=== PATIENT | male | born 1950 | race Caucasian/White ===

== ENCOUNTER 2020-06-08 18:13 | Inpatient (IN) | payer OTHER ==
[2020-06-08] MEDS ORDERED: ALBUTEROL SO4 HFA INHALER IH ONE ×2 (18:26→19:05)
[2020-06-08] MEDS ORDERED: DEXAMETHASONE SOD PHOSPHATE 10 MG/1 ML VIAL ONE (18:26)
[2020-06-08] MEDS ORDERED: ACETAMINOPHEN INJECTION 100 ML IVPB ONE (18:31)
[2020-06-08] MEDS ORDERED: SODIUM CHLORIDE 0.9% 500 ML INFUS.BAG IV ONE ×2 (18:38→19:05)
[2020-06-08] MEDS ORDERED: DEXAMETHASONE SOD PHOSPHATE 10 MG/1 ML VIAL IVPUSH ONE (19:05)
[2020-06-08] MEDS ORDERED: ACETAMINOPHEN 1000 MG/100 ML VIAL (NON FORMULARY) IVPB ONE (19:05)
[2020-06-08] MEDS ORDERED: CEFTRIAXONE 1,000 MG in DEXTROSE 5%-WATER - 50 ML IVPB ONE (19:07)
[2020-06-08] MEDS ORDERED: AZITHROMYCIN IVPB 500 MG in DEXTROSE 5%-WATER - 250 ML IVPB ONE (19:07)
[2020-06-08 19:19] LABS: VENOUS BASE EXCESS -0.4 mmol/L (-2-2); VENOUS O2 SATURATION 84.6 % (70-80); VENOUS PCO2 41.5 mmHg (38-52); VENOUS PH 7.391 (7.310-7.410)
[2020-06-08 19:23] LABS: BASO % 0.4 % (0-2.0); HEMATOCRIT 43.9 % (35.4-49); HEMOGLOBIN 14.6 GM/dL (11.7-16.9); LYMPH % 12.3 % (8-40); MCH 32.3 pg (25.7-33.7); MCHC 33.2 g/dl (32.0-35.9); MEAN CELL VOLUME 97.2 fl (80-96); MEAN PLT VOLUME 8.9 fl (7.5-11.1); NEUT % 79.3 % (42.8-82.8); PLATELET COUNT 108 K/MM3 (134-434); RBC 4.52 M/mm3 (4.00-5.60); RDW 14.1 % (11.9-15.9); WHITE BLOOD COUNT 3.5 K/mm3 (4.0-10.0)
[2020-06-08 19:32] LABS: INR 1.08 (0.83-1.09)
[2020-06-08 19:35] LABS: ACTIVATED PTT 29.6 SECONDS (25.2-36.5)
[2020-06-08 19:46] LABS: CHLORIDE 105 mmol/L (98-107); POTASSIUM 4.1 mmol/L (3.5-5.1); SODIUM 137 mmol/L (136-145)
[2020-06-08 19:48] LABS: CALCIUM 8.4 mg/dL (8.5-10.1)
[2020-06-08 19:49] LABS: ALBUMIN 3.4 g/dl (3.4-5.0); ANION GAP 6 MMOL/L (8-16); BLOOD UREA NITROGEN 29.4 mg/dL (7-18); CO2 26 mmol/L (21-32); GLUCOSE,RANDOM 140 mg/dL (74-106)
[2020-06-08 19:51] LABS: BILIRUBIN,DIRECT 0.2 mg/dL (0.0-0.2)
[2020-06-08 19:52] LABS: SGOT/AST 92 U/L (15-37); SGPT/ALT 70 U/L (13-61)
[2020-06-08 19:53] LABS: BILIRUBIN,TOTAL 0.4 mg/dL (0.2-1); TOT PROT 6.2 g/dl (6.4-8.2)
[2020-06-08 19:55] LABS: ALK PHOS 66 U/L (45-117)
[2020-06-08 19:57] LABS: N-TERMINAL BNP 163.2 pg/ml (5-125)
[2020-06-08] MEDS ORDERED: CEFTRIAXONE 1 GM/50 ML BAG ONE (19:58)
[2020-06-08 19:59] LABS: LDH 412 U/L (87-246)
[2020-06-08] MEDS ORDERED: AZITHROMYCIN IVPB 500 MG/250 ML BAG IVPB ONE (19:59)
[2020-06-08] MEDS ORDERED: ALBUTEROL SO4 HFA INHALER IH PRN (23:18)
[2020-06-09] MEDS ORDERED: oxyCODONE HCL 5 MG TABLET PO PRN (00:13)
[2020-06-09] MEDS ORDERED: ACETAMINOPHEN 325 MG TABLET (FP) PO PRN (00:15)
[2020-06-09] MEDS: INSULIN SLIDING SCALE (NOVOLOG) 1 VIAL SQ SCH ×3 (07:04→17:24)
[2020-06-09 07:18] LABS: BASO % 0.1 % (0-2.0); HEMATOCRIT 42.5 % (35.4-49); HEMOGLOBIN 14.5 GM/dL (11.7-16.9); MCHC 34.2 g/dl (32.0-35.9); MEAN CELL VOLUME 96.6 fl (80-96); MEAN PLT VOLUME 8.7 fl (7.5-11.1); MONO % 6.4 % (3.8-10.2); NEUT % 83.5 % (42.8-82.8); PLATELET COUNT 114 K/MM3 (134-434); RDW 14.1 % (11.9-15.9); WHITE BLOOD COUNT 4.2 K/mm3 (4.0-10.0)
[2020-06-09 07:32] LABS: POTASSIUM 4.2 mmol/L (3.5-5.1)
[2020-06-09 07:40] LABS: ALBUMIN 3.3 g/dl (3.4-5.0); BLOOD UREA NITROGEN 37.1 mg/dL (7-18); CALCIUM 8.7 mg/dL (8.5-10.1); MAGNESIUM 2.1 mg/dL (1.8-2.4)
[2020-06-09 07:43] LABS: CREATININE 1.8 mg/dL (0.55-1.3)
[2020-06-09 07:44] LABS: BILIRUBIN,TOTAL 0.4 mg/dL (0.2-1)
[2020-06-09] MEDS ORDERED: PATIENT'S OWN MEDICATION (NON-FORMULARY) (Simvastatin [Zocor] 20 MG Tablet) PO SCH (10:00)
[2020-06-09] MEDS: DEXAMETHASONE 4 MG TABLET (FP) PO SCH (10:43)
[2020-06-09] MEDS: ASPIRIN 81 MG CHEWABLE TABLETS PO SCH (10:43)
[2020-06-09] MEDS: ENOXAPARIN NA (PORCINE) 40 MG/0.4 ML DISP.SYRIN SQ SCH (10:44)
[2020-06-09] MEDS: ALLOPURINOL 300 MG TABLET (FP) PO SCH (10:46)
[2020-06-09 11:24] VITALS: BMI 29.1
[2020-06-09] MEDS ORDERED: REMDESIVIR 200 MG in SODIUM CHLORIDE 210 ML IVPB ONE (12:00)
[2020-06-09] MEDS ORDERED: INSULIN (NOVOLOG) ASPART 100 UNITS/ML 10ML VIAL ONE (12:14)
[2020-06-09] MEDS ORDERED: PT OWN MED DRAWER 7, Y5N ONE (17:23)
[2020-06-09] MEDS: glipiZIDE 5 MG TABLET (FP) PO SCH (17:24)
[2020-06-09] MEDS: ATORVASTATIN CA 10 MG TABLET (FP) PO SCH (21:57)
[2020-06-10] MEDS ORDERED: PT OWN MED DRAWER 7, Y5N ONE ×2 (05:30→17:05)
[2020-06-10] MEDS: glipiZIDE 5 MG TABLET (FP) PO SCH ×2 (06:46→17:17)
[2020-06-10] MEDS: INSULIN SLIDING SCALE (NOVOLOG) 1 VIAL SQ SCH ×4 (06:55→21:50)
[2020-06-10] MEDS: ENOXAPARIN NA (PORCINE) 40 MG/0.4 ML DISP.SYRIN SQ SCH (10:32)
[2020-06-10] MEDS: ASPIRIN 81 MG CHEWABLE TABLETS PO SCH (10:33)
[2020-06-10] MEDS: DEXAMETHASONE 4 MG TABLET (FP) PO SCH (10:33)
[2020-06-10] MEDS: ALLOPURINOL 300 MG TABLET (FP) PO SCH (10:35)
[2020-06-10] MEDS ORDERED: cefTRIAXone SODIUM 1 GM VIAL ONE (11:46)
[2020-06-10] MEDS ORDERED: DEXTROSE 5%-WATER - 50 ML IVPB ONE (11:46)
[2020-06-10] MEDS: CEFTRIAXONE 1 GM in DEXTROSE 5%-WATER - 50 ML IVPB SCH (11:47)
[2020-06-10] MEDS: REMDESIVIR 100 MG in SODIUM CHLORIDE 230 ML IVPB SCH (14:20)
[2020-06-10] MEDS: INSULIN (LEVEMIR) 100 UNITS/ML UNITS SQ SCH (21:49)
[2020-06-10] MEDS: ATORVASTATIN CA 10 MG TABLET (FP) PO SCH (21:51)
[2020-06-11] MEDS ORDERED: PT OWN MED DRAWER 7, Y5N ONE ×2 (06:25→16:52)
[2020-06-11] MEDS: INSULIN SLIDING SCALE (NOVOLOG) 1 VIAL SQ SCH ×4 (06:35→21:14)
[2020-06-11] MEDS: glipiZIDE 5 MG TABLET (FP) PO SCH ×2 (06:36→17:02)
[2020-06-11] MEDS ORDERED: cefTRIAXone SODIUM 1 GM VIAL ONE (10:08)
[2020-06-11] MEDS ORDERED: DEXTROSE 5%-WATER - 50 ML IVPB ONE (10:08)
[2020-06-11] MEDS: CEFTRIAXONE 1 GM in DEXTROSE 5%-WATER - 50 ML IVPB SCH (10:13)
[2020-06-11] MEDS: ALLOPURINOL 300 MG TABLET (FP) PO SCH (10:14)
[2020-06-11] MEDS: ASPIRIN 81 MG CHEWABLE TABLETS PO SCH (10:14)
[2020-06-11] MEDS: DEXAMETHASONE 4 MG TABLET (FP) PO SCH (10:14)
[2020-06-11] MEDS: ENOXAPARIN NA (PORCINE) 40 MG/0.4 ML DISP.SYRIN SQ SCH (10:16)
[2020-06-11] MEDS: REMDESIVIR 100 MG in SODIUM CHLORIDE 230 ML IVPB SCH (12:21)
[2020-06-11 16:58] LABS: EPI CELLS 3 /uL (0-25.1); HYALINE CASTS 0 /uL (0-3.1); URINE APPEARANCE CLEAR; URINE BACTERIA 63 /uL (0-1359); URINE BILIRUBIN NEGATIVE (NEGATIVE); URINE COLOR YELLOW; URINE GLUCOSE (UA) 3+ (NEGATIVE); URINE KETONE NEGATIVE (NEGATIVE); URINE LEUK ESTERASE NEGATIVE (NEGATIVE); URINE NITRITE NEGATIVE (NEGATIVE); URINE PROTEIN 1+ (NEGATIVE); URINE RBC 20 /uL (0-23.9); URINE UROBILINOGEN 0.2 mg/dL (0.2-1.0); URINE WBC 7 /uL (0-25.8)
[2020-06-11] MEDS: ACETAMINOPHEN 325 MG TABLET (FP) PO PRN (21:11)
[2020-06-11] MEDS: ATORVASTATIN CA 10 MG TABLET (FP) PO SCH (21:12)
[2020-06-11] MEDS: INSULIN (LEVEMIR) 100 UNITS/ML UNITS SQ SCH (21:18)
[2020-06-12] MEDS: INSULIN SLIDING SCALE (NOVOLOG) 1 VIAL SQ SCH ×4 (06:08→22:10)
[2020-06-12] MEDS ORDERED: PT OWN MED DRAWER 7, Y5N ONE ×4 (06:10→16:41)
[2020-06-12] MEDS: glipiZIDE 5 MG TABLET (FP) PO SCH ×2 (06:11→16:36)
[2020-06-12] MEDS ORDERED: cefTRIAXone SODIUM 1 GM VIAL ONE (10:07)
[2020-06-12] MEDS ORDERED: DEXTROSE 5%-WATER - 50 ML IVPB ONE (10:07)
[2020-06-12] MEDS: ENOXAPARIN NA (PORCINE) 40 MG/0.4 ML DISP.SYRIN SQ SCH (10:14)
[2020-06-12] MEDS: CEFTRIAXONE 1 GM in DEXTROSE 5%-WATER - 50 ML IVPB SCH (10:14)
[2020-06-12] MEDS: ASPIRIN 81 MG CHEWABLE TABLETS PO SCH (10:14)
[2020-06-12] MEDS: DEXAMETHASONE 4 MG TABLET (FP) PO SCH (10:15)
[2020-06-12] MEDS: ALLOPURINOL 300 MG TABLET (FP) PO SCH (10:15)
[2020-06-12] MEDS ORDERED: TOCILIZUMAB (ACTEMRA) 200 MG/10 ML VIAL IVPB ONE (10:15)
[2020-06-12] MEDS: SODIUM CHLORIDE NASAL SPRAY 44 ML BOTTLE NS SCH (10:15)
[2020-06-12] MEDS ORDERED: TOCILIZUMAB 800 MG in SODIUM CHLORIDE 60 ML IVPB ONE (11:00)
[2020-06-12] MEDS ORDERED: INSULIN (NOVOLOG) ASPART 100 UNITS/ML 10ML VIAL ONE (11:05)
[2020-06-12] MEDS: REMDESIVIR 100 MG in SODIUM CHLORIDE 230 ML IVPB SCH (11:07)
[2020-06-12] MEDS: INSULIN (LEVEMIR) 100 UNITS/ML UNITS SQ SCH (21:52)
[2020-06-12] MEDS: ATORVASTATIN CA 10 MG TABLET (FP) PO SCH (22:13)
[2020-06-13] MEDS ORDERED: PT OWN MED DRAWER 7, Y5N ONE ×4 (06:22→17:32)
[2020-06-13] MEDS: INSULIN SLIDING SCALE (NOVOLOG) 1 VIAL SQ SCH ×4 (06:31→22:01)
[2020-06-13] MEDS: glipiZIDE 5 MG TABLET (FP) PO SCH ×2 (06:32→17:11)
[2020-06-13] MEDS ORDERED: INSULIN (NOVOLOG) ASPART 100 UNITS/ML 10ML VIAL ONE (07:19)
[2020-06-13] MEDS ORDERED: cefTRIAXone SODIUM 1 GM VIAL ONE (08:49)
[2020-06-13] MEDS ORDERED: DEXTROSE 5%-WATER - 50 ML IVPB ONE (08:49)
[2020-06-13 09:30] LABS: HEMATOCRIT 45.9 % (35.4-49); HEMOGLOBIN 15.1 GM/dL (11.7-16.9); MCH 32.2 pg (25.7-33.7); MCHC 32.9 g/dl (32.0-35.9); MEAN CELL VOLUME 97.8 fl (80-96); MEAN PLT VOLUME 9.3 fl (7.5-11.1); PLATELET COUNT 195 K/MM3 (134-434); RBC 4.69 M/mm3 (4.00-5.60); RDW 14.4 % (11.9-15.9); WHITE BLOOD COUNT 9.1 K/mm3 (4.0-10.0)
[2020-06-13 09:47] LABS: POTASSIUM 4.2 mmol/L (3.5-5.1)
[2020-06-13 09:53] LABS: CALCIUM 8.8 mg/dL (8.5-10.1)
[2020-06-13 09:54] LABS: ALBUMIN 3.2 g/dl (3.4-5.0); BLOOD UREA NITROGEN 42.9 mg/dL (7-18)
[2020-06-13 09:57] LABS: CREATININE 1.3 mg/dL (0.55-1.3)
[2020-06-13 09:58] LABS: BILIRUBIN,TOTAL 0.6 mg/dL (0.2-1); TOT PROT 5.9 g/dl (6.4-8.2)
[2020-06-13] MEDS: ASPIRIN 81 MG CHEWABLE TABLETS PO SCH (10:01)
[2020-06-13] MEDS: DEXAMETHASONE 4 MG TABLET (FP) PO SCH (10:01)
[2020-06-13] MEDS: SODIUM CHLORIDE NASAL SPRAY 44 ML BOTTLE NS SCH (10:01)
[2020-06-13] MEDS: ALLOPURINOL 300 MG TABLET (FP) PO SCH (10:01)
[2020-06-13] MEDS: ENOXAPARIN NA (PORCINE) 40 MG/0.4 ML DISP.SYRIN SQ SCH (10:01)
[2020-06-13] MEDS: CEFTRIAXONE 1 GM in DEXTROSE 5%-WATER - 50 ML IVPB SCH (10:02)
[2020-06-13] MEDS: REMDESIVIR 100 MG in SODIUM CHLORIDE 230 ML IVPB SCH (11:16)
[2020-06-13] MEDS: ATORVASTATIN CA 10 MG TABLET (FP) PO SCH (22:01)
[2020-06-13] MEDS: INSULIN (LEVEMIR) 100 UNITS/ML UNITS SQ SCH (22:01)
[2020-06-14] MEDS ORDERED: PT OWN MED DRAWER 7, Y5N ONE ×2 (06:14→17:21)
[2020-06-14] MEDS: glipiZIDE 5 MG TABLET (FP) PO SCH ×2 (06:15→17:21)
[2020-06-14] MEDS: INSULIN SLIDING SCALE (NOVOLOG) 1 VIAL SQ SCH ×4 (06:17→21:42)
[2020-06-14] MEDS ORDERED: DEXTROSE 5%-WATER - 50 ML IVPB ONE (09:29)
[2020-06-14] MEDS ORDERED: cefTRIAXone SODIUM 1 GM VIAL ONE (09:29)
[2020-06-14] MEDS: ENOXAPARIN NA (PORCINE) 40 MG/0.4 ML DISP.SYRIN SQ SCH (09:46)
[2020-06-14] MEDS: CEFTRIAXONE 1 GM in DEXTROSE 5%-WATER - 50 ML IVPB SCH (09:46)
[2020-06-14] MEDS: ALLOPURINOL 300 MG TABLET (FP) PO SCH (09:47)
[2020-06-14] MEDS: DEXAMETHASONE 4 MG TABLET (FP) PO SCH (09:47)
[2020-06-14] MEDS: ASPIRIN 81 MG CHEWABLE TABLETS PO SCH (09:47)
[2020-06-14] MEDS: SODIUM CHLORIDE NASAL SPRAY 44 ML BOTTLE NS SCH (09:48)
[2020-06-14] MEDS: ATORVASTATIN CA 10 MG TABLET (FP) PO SCH (21:13)
[2020-06-14] MEDS: INSULIN (LEVEMIR) 100 UNITS/ML UNITS SQ SCH (21:17)
[2020-06-15] MEDS ORDERED: PT OWN MED DRAWER 7, Y5N ONE ×2 (06:17→17:01)
[2020-06-15] MEDS: glipiZIDE 5 MG TABLET (FP) PO SCH ×2 (06:23→17:02)
[2020-06-15] MEDS: INSULIN SLIDING SCALE (NOVOLOG) 1 VIAL SQ SCH ×3 (06:23→17:06)
[2020-06-15] MEDS ORDERED: INSULIN (NOVOLOG) ASPART 100 UNITS/ML 10ML VIAL ONE ×2 (06:47→11:24)
[2020-06-15 08:37] LABS: BASO % 0.6 % (0-2.0); EOS % 0.3 % (0-4.5); HEMATOCRIT 46.3 % (35.4-49); HEMOGLOBIN 15.5 GM/dL (11.7-16.9); LYMPH % 1.4 % (8-40); MCH 32.4 pg (25.7-33.7); MCHC 33.5 g/dl (32.0-35.9); MEAN CELL VOLUME 96.7 fl (80-96); MEAN PLT VOLUME 9.2 fl (7.5-11.1); MONO % 2.3 % (3.8-10.2); NEUT % 95.4 % (42.8-82.8); PLATELET COUNT 201 K/MM3 (134-434); RBC 4.78 M/mm3 (4.00-5.60); WHITE BLOOD COUNT 9.8 K/mm3 (4.0-10.0)
[2020-06-15 08:39] LABS: POTASSIUM 4.4 mmol/L (3.5-5.1)
[2020-06-15 08:42] LABS: BLOOD UREA NITROGEN 41.4 mg/dL (7-18); CALCIUM 8.7 mg/dL (8.5-10.1)
[2020-06-15 08:45] LABS: CREATININE 1.2 mg/dL (0.55-1.3)
[2020-06-15 10:50] LABS: ANISOCYTOSIS 1+; MACROCYTOSIS 1+; PLATELET ESTIMATE NORMAL
[2020-06-15] MEDS ORDERED: DEXTROSE 5%-WATER - 50 ML IVPB ONE (11:15)
[2020-06-15] MEDS ORDERED: cefTRIAXone SODIUM 1 GM VIAL ONE (11:15)
[2020-06-15] MEDS: CEFTRIAXONE 1 GM in DEXTROSE 5%-WATER - 50 ML IVPB SCH (11:19)
[2020-06-15] MEDS: DEXAMETHASONE 4 MG TABLET (FP) PO SCH (11:20)
[2020-06-15] MEDS: ENOXAPARIN NA (PORCINE) 40 MG/0.4 ML DISP.SYRIN SQ SCH (11:20)
[2020-06-15] MEDS: ALLOPURINOL 300 MG TABLET (FP) PO SCH (11:21)
[2020-06-15] MEDS: ASPIRIN 81 MG CHEWABLE TABLETS PO SCH (11:21)
[2020-06-15] MEDS: SODIUM CHLORIDE NASAL SPRAY 44 ML BOTTLE NS SCH (11:21)
[2020-06-15] MEDS: ATORVASTATIN CA 10 MG TABLET (FP) PO SCH (22:28)
[2020-06-15] MEDS: INSULIN (LEVEMIR) 100 UNITS/ML UNITS SQ SCH (22:28)
[2020-06-16] MEDS ORDERED: PT OWN MED DRAWER 7, Y5N ONE ×4 (06:11→21:24)
[2020-06-16] MEDS: INSULIN SLIDING SCALE (NOVOLOG) 1 VIAL SQ SCH ×3 (06:31→16:45)
[2020-06-16] MEDS: glipiZIDE 5 MG TABLET (FP) PO SCH ×2 (06:33→16:40)
[2020-06-16] MEDS ORDERED: INSULIN (LEVEMIR) 100 UNITS/ML UNITS SQ ONE (07:27)
[2020-06-16] MEDS ORDERED: DEXTROSE 5%-WATER - 50 ML IVPB ONE (08:49)
[2020-06-16] MEDS ORDERED: cefTRIAXone SODIUM 1 GM VIAL ONE (08:49)
[2020-06-16] MEDS: DEXAMETHASONE 4 MG TABLET (FP) PO SCH (09:48)
[2020-06-16] MEDS: ALLOPURINOL 300 MG TABLET (FP) PO SCH (09:48)
[2020-06-16] MEDS: ENOXAPARIN NA (PORCINE) 40 MG/0.4 ML DISP.SYRIN SQ SCH (09:48)
[2020-06-16] MEDS: ASPIRIN 81 MG CHEWABLE TABLETS PO SCH (09:49)
[2020-06-16] MEDS: SODIUM CHLORIDE NASAL SPRAY 44 ML BOTTLE NS SCH (09:49)
[2020-06-16] MEDS ORDERED: INSULIN (NOVOLOG) ASPART 100 UNITS/ML 10ML VIAL ONE (11:06)
[2020-06-16] MEDS: ALBUTEROL SO4 HFA INHALER IH SCH ×3 (11:35→20:40)
[2020-06-16] MEDS: BUDESONIDE/FORMETEROL FUMARATE 160/4.5 mcg INHALER IH SCH ×2 (11:35→21:31)
[2020-06-16] MEDS: ATORVASTATIN CA 10 MG TABLET (FP) PO SCH (21:26)
[2020-06-16] MEDS: INSULIN (LEVEMIR) 100 UNITS/ML UNITS SQ SCH (21:30)
[2020-06-17] MEDS ORDERED: PT OWN MED DRAWER 7, Y5N ONE (06:19)
[2020-06-17] MEDS: glipiZIDE 5 MG TABLET (FP) PO SCH ×2 (06:43→17:09)
[2020-06-17] MEDS: INSULIN SLIDING SCALE (NOVOLOG) 1 VIAL SQ SCH ×3 (06:43→17:08)
[2020-06-17] MEDS: ASPIRIN 81 MG CHEWABLE TABLETS PO SCH (09:35)
[2020-06-17] MEDS: ALBUTEROL SO4 HFA INHALER IH SCH ×4 (09:35→21:22)
[2020-06-17] MEDS: DEXAMETHASONE 4 MG TABLET (FP) PO SCH (09:35)
[2020-06-17] MEDS: ALLOPURINOL 300 MG TABLET (FP) PO SCH (09:35)
[2020-06-17] MEDS: BUDESONIDE/FORMETEROL FUMARATE 160/4.5 mcg INHALER IH SCH ×2 (09:37→21:30)
[2020-06-17] MEDS: ENOXAPARIN NA (PORCINE) 40 MG/0.4 ML DISP.SYRIN SQ SCH (09:37)
[2020-06-17] MEDS: SODIUM CHLORIDE NASAL SPRAY 44 ML BOTTLE NS SCH (09:37)
[2020-06-17] MEDS: ATORVASTATIN CA 10 MG TABLET (FP) PO SCH (21:18)
[2020-06-17] MEDS ORDERED: INSULIN (LEVEMIR) 100 UNITS/ML UNITS SQ SCH ×2 (22:00)
[2020-06-18] MEDS ORDERED: PT OWN MED DRAWER 7, Y5N ONE ×2 (05:43→16:50)
[2020-06-18] MEDS: glipiZIDE 5 MG TABLET (FP) PO SCH ×2 (05:59→16:50)
[2020-06-18] MEDS: INSULIN SLIDING SCALE (NOVOLOG) 1 VIAL SQ SCH ×3 (06:02→16:49)
[2020-06-18] MEDS: ALLOPURINOL 300 MG TABLET (FP) PO SCH (09:57)
[2020-06-18] MEDS: ALBUTEROL SO4 HFA INHALER IH SCH ×4 (09:57→20:05)
[2020-06-18] MEDS: ENOXAPARIN NA (PORCINE) 40 MG/0.4 ML DISP.SYRIN SQ SCH (09:57)
[2020-06-18] MEDS: ASPIRIN 81 MG CHEWABLE TABLETS PO SCH (09:57)
[2020-06-18] MEDS: DEXAMETHASONE 4 MG TABLET (FP) PO SCH (09:57)
[2020-06-18] MEDS: SODIUM CHLORIDE NASAL SPRAY 44 ML BOTTLE NS SCH (09:57)
[2020-06-18] MEDS: BUDESONIDE/FORMETEROL FUMARATE 160/4.5 mcg INHALER IH SCH ×2 (09:58→21:48)
[2020-06-18] MEDS ORDERED: INSULIN (NOVOLOG) ASPART 100 UNITS/ML 10ML VIAL ONE (11:30)
[2020-06-18] MEDS ORDERED: DOCUSATE SODIUM 100 MG CAPSULE (FP) PO ONE (19:52)
[2020-06-18] MEDS: ATORVASTATIN CA 10 MG TABLET (FP) PO SCH (21:48)
[2020-06-19] MEDS ORDERED: PT OWN MED DRAWER 7, Y5N ONE ×2 (06:10→17:37)
[2020-06-19] MEDS: glipiZIDE 5 MG TABLET (FP) PO SCH ×2 (06:11→17:37)
[2020-06-19] MEDS: INSULIN SLIDING SCALE (NOVOLOG) 1 VIAL SQ SCH ×3 (06:16→17:36)
[2020-06-19] MEDS: ENOXAPARIN NA (PORCINE) 40 MG/0.4 ML DISP.SYRIN SQ SCH (09:54)
[2020-06-19] MEDS: ASPIRIN 81 MG CHEWABLE TABLETS PO SCH (09:54)
[2020-06-19] MEDS: BUDESONIDE/FORMETEROL FUMARATE 160/4.5 mcg INHALER IH SCH ×3 (09:54→21:01)
[2020-06-19] MEDS: SODIUM CHLORIDE NASAL SPRAY 44 ML BOTTLE NS SCH (09:54)
[2020-06-19] MEDS: DEXAMETHASONE 4 MG TABLET (FP) PO SCH (09:54)
[2020-06-19] MEDS: ALLOPURINOL 300 MG TABLET (FP) PO SCH (09:54)
[2020-06-19] MEDS: ALBUTEROL SO4 HFA INHALER IH SCH ×4 (09:54→20:12)
[2020-06-19] MEDS: INSULIN (LEVEMIR) 100 UNITS/ML UNITS SQ SCH ×2 (10:01→21:01)
[2020-06-19] MEDS: DOCUSATE SODIUM 100 MG CAPSULE (FP) PO SCH (13:42)
[2020-06-19] MEDS: ATORVASTATIN CA 10 MG TABLET (FP) PO SCH (21:01)
[2020-06-20] MEDS ORDERED: PT OWN MED DRAWER 7, Y5N ONE ×3 (03:09→16:56)
[2020-06-20] MEDS: INSULIN (LEVEMIR) 100 UNITS/ML UNITS SQ SCH ×2 (06:00→22:28)
[2020-06-20] MEDS: glipiZIDE 5 MG TABLET (FP) PO SCH ×2 (06:00→17:00)
[2020-06-20] MEDS: INSULIN SLIDING SCALE (NOVOLOG) 1 VIAL SQ SCH ×3 (06:00→17:05)
[2020-06-20] MEDS ORDERED: INSULIN (NOVOLOG) ASPART 100 UNITS/ML 10ML VIAL ONE ×2 (06:43→11:35)
[2020-06-20] MEDS: ALBUTEROL SO4 HFA INHALER IH SCH ×4 (09:32→19:52)
[2020-06-20] MEDS: DEXAMETHASONE 4 MG TABLET (FP) PO SCH (09:32)
[2020-06-20] MEDS: ALLOPURINOL 300 MG TABLET (FP) PO SCH (09:34)
[2020-06-20] MEDS: ASPIRIN 81 MG CHEWABLE TABLETS PO SCH (09:35)
[2020-06-20] MEDS: DOCUSATE SODIUM 100 MG CAPSULE (FP) PO SCH (09:35)
[2020-06-20] MEDS: ENOXAPARIN NA (PORCINE) 40 MG/0.4 ML DISP.SYRIN SQ SCH (09:36)
[2020-06-20] MEDS: SODIUM CHLORIDE NASAL SPRAY 44 ML BOTTLE NS SCH (09:36)
[2020-06-20] MEDS: BUDESONIDE/FORMETEROL FUMARATE 160/4.5 mcg INHALER IH SCH ×2 (09:37→22:27)
[2020-06-20] MEDS: FUROSEMIDE 40 MG TABLET (FP) PO SCH (09:42)
[2020-06-20] MEDS: ATORVASTATIN CA 10 MG TABLET (FP) PO SCH (22:24)
[2020-06-21] MEDS ORDERED: PT OWN MED DRAWER 7, Y5N ONE ×2 (04:33→17:09)
[2020-06-21] MEDS: INSULIN (LEVEMIR) 100 UNITS/ML UNITS SQ SCH ×2 (06:43→21:32)
[2020-06-21] MEDS: INSULIN SLIDING SCALE (NOVOLOG) 1 VIAL SQ SCH ×3 (06:43→17:23)
[2020-06-21] MEDS: glipiZIDE 5 MG TABLET (FP) PO SCH ×2 (06:43→17:23)
[2020-06-21] MEDS: ENOXAPARIN NA (PORCINE) 40 MG/0.4 ML DISP.SYRIN SQ SCH (09:41)
[2020-06-21] MEDS: ASPIRIN 81 MG CHEWABLE TABLETS PO SCH (09:41)
[2020-06-21] MEDS: SODIUM CHLORIDE NASAL SPRAY 44 ML BOTTLE NS SCH (09:42)
[2020-06-21] MEDS: BUDESONIDE/FORMETEROL FUMARATE 160/4.5 mcg INHALER IH SCH ×2 (09:42→21:33)
[2020-06-21] MEDS: DEXAMETHASONE 4 MG TABLET (FP) PO SCH (09:42)
[2020-06-21] MEDS: DOCUSATE SODIUM 100 MG CAPSULE (FP) PO SCH (09:42)
[2020-06-21] MEDS: ALLOPURINOL 300 MG TABLET (FP) PO SCH (09:42)
[2020-06-21] MEDS: ALBUTEROL SO4 HFA INHALER IH SCH ×4 (09:42→21:33)
[2020-06-21] MEDS: FUROSEMIDE 40 MG TABLET (FP) PO SCH (09:42)
[2020-06-21] MEDS: POLYETHYLENE GLYCOL 3350 119 GM BTL PO SCH (14:11)
[2020-06-21] MEDS ORDERED: INSULIN (NOVOLOG) ASPART 100 UNITS/ML 10ML VIAL ONE (21:00)
[2020-06-21] MEDS: ATORVASTATIN CA 10 MG TABLET (FP) PO SCH (21:32)
[2020-06-22] MEDS ORDERED: PT OWN MED DRAWER 7, Y5N ONE (05:55)
[2020-06-22] MEDS: INSULIN (LEVEMIR) 100 UNITS/ML UNITS SQ SCH ×2 (06:13→21:50)
[2020-06-22] MEDS: glipiZIDE 5 MG TABLET (FP) PO SCH ×2 (06:13→17:18)
[2020-06-22] MEDS: INSULIN SLIDING SCALE (NOVOLOG) 1 VIAL SQ SCH ×3 (06:14→17:19)
[2020-06-22] MEDS: FUROSEMIDE 40 MG TABLET (FP) PO SCH (09:28)
[2020-06-22] MEDS: ALLOPURINOL 300 MG TABLET (FP) PO SCH (09:28)
[2020-06-22] MEDS: DEXAMETHASONE 4 MG TABLET (FP) PO SCH (09:29)
[2020-06-22] MEDS: DOCUSATE SODIUM 100 MG CAPSULE (FP) PO SCH (09:29)
[2020-06-22] MEDS: ASPIRIN 81 MG CHEWABLE TABLETS PO SCH (09:36)
[2020-06-22] MEDS: ENOXAPARIN NA (PORCINE) 40 MG/0.4 ML DISP.SYRIN SQ SCH (09:39)
[2020-06-22] MEDS: BUDESONIDE/FORMETEROL FUMARATE 160/4.5 mcg INHALER IH SCH ×2 (09:40→21:53)
[2020-06-22] MEDS: POLYETHYLENE GLYCOL 3350 119 GM BTL PO SCH (09:42)
[2020-06-22] MEDS: SODIUM CHLORIDE NASAL SPRAY 44 ML BOTTLE NS SCH (09:42)
[2020-06-22] MEDS: ALBUTEROL SO4 HFA INHALER IH SCH ×4 (09:43→21:53)
[2020-06-22 11:56] LABS: BASO % 0.1 % (0-2.0); EOS % 0.3 % (0-4.5); HEMOGLOBIN 15.3 GM/dL (11.7-16.9); LYMPH % 1.4 % (8-40); MCH 32.2 pg (25.7-33.7); MCHC 33.3 g/dl (32.0-35.9); MEAN CELL VOLUME 96.9 fl (80-96); MEAN PLT VOLUME 9.9 fl (7.5-11.1); MONO % 4.6 % (3.8-10.2); NEUT % 93.6 % (42.8-82.8); PLATELET COUNT 148 K/MM3 (134-434); RBC 4.75 M/mm3 (4.00-5.60); RDW 14.5 % (11.9-15.9); WHITE BLOOD COUNT 14.9 K/mm3 (4.0-10.0)
[2020-06-22 12:15] LABS: CHLORIDE 105 mmol/L (98-107); POTASSIUM 4.7 mmol/L (3.5-5.1); SODIUM 143 mmol/L (136-145)
[2020-06-22 12:17] LABS: ANION GAP 7 MMOL/L (8-16); BLOOD UREA NITROGEN 45.3 mg/dL (7-18); CALCIUM 8.4 mg/dL (8.5-10.1); CO2 31 mmol/L (21-32); GLUCOSE,RANDOM 202 mg/dL (74-106)
[2020-06-22 12:21] LABS: ANISOCYTOSIS 1+; CREATININE 1.3 mg/dL (0.55-1.3); MACROCYTOSIS 0; PLATELET ESTIMATE DECREASED
[2020-06-22] MEDS ORDERED: FUROSEMIDE 40 MG/4 ML INJECTABLE VIAL IVPUSH ONE (12:48)
[2020-06-22] MEDS: ATORVASTATIN CA 10 MG TABLET (FP) PO SCH (21:49)
[2020-06-23] MEDS ORDERED: PT OWN MED DRAWER 7, Y5N ONE (04:20)
[2020-06-23] MEDS: INSULIN (LEVEMIR) 100 UNITS/ML UNITS SQ SCH ×2 (06:20→21:54)
[2020-06-23] MEDS: glipiZIDE 5 MG TABLET (FP) PO SCH ×2 (06:20→17:32)
[2020-06-23] MEDS: INSULIN SLIDING SCALE (NOVOLOG) 1 VIAL SQ SCH ×3 (06:24→17:36)
[2020-06-23] MEDS: DEXAMETHASONE 4 MG TABLET (FP) PO SCH (10:06)
[2020-06-23] MEDS: ENOXAPARIN NA (PORCINE) 40 MG/0.4 ML DISP.SYRIN SQ SCH (10:06)
[2020-06-23] MEDS: ASPIRIN 81 MG CHEWABLE TABLETS PO SCH (10:06)
[2020-06-23] MEDS: FUROSEMIDE 40 MG TABLET (FP) PO SCH (10:07)
[2020-06-23] MEDS: ALLOPURINOL 300 MG TABLET (FP) PO SCH (10:07)
[2020-06-23] MEDS: BUDESONIDE/FORMETEROL FUMARATE 160/4.5 mcg INHALER IH SCH ×2 (10:12→21:52)
[2020-06-23] MEDS: ALBUTEROL SO4 HFA INHALER IH SCH ×4 (10:12→20:02)
[2020-06-23] MEDS: POLYETHYLENE GLYCOL 3350 119 GM BTL PO SCH (10:13)
[2020-06-23] MEDS: SODIUM CHLORIDE NASAL SPRAY 44 ML BOTTLE NS SCH (10:13)
[2020-06-23] MEDS: DOCUSATE SODIUM 100 MG CAPSULE (FP) PO SCH (10:13)
[2020-06-23] MEDS ORDERED: INSULIN (NOVOLOG) ASPART 100 UNITS/ML 10ML VIAL ONE (17:52)
[2020-06-23] MEDS: ATORVASTATIN CA 10 MG TABLET (FP) PO SCH (21:47)
[2020-06-24] MEDS ORDERED: PT OWN MED DRAWER 7, Y5N ONE ×2 (04:25→17:24)
[2020-06-24] MEDS: glipiZIDE 5 MG TABLET (FP) PO SCH ×2 (06:02→17:31)
[2020-06-24] MEDS: INSULIN SLIDING SCALE (NOVOLOG) 1 VIAL SQ SCH ×3 (06:02→17:10)
[2020-06-24] MEDS: INSULIN (LEVEMIR) 100 UNITS/ML UNITS SQ SCH ×2 (06:02→21:25)
[2020-06-24] MEDS ORDERED: INSULIN (NOVOLOG) ASPART 100 UNITS/ML 10ML VIAL ONE ×3 (06:12→16:58)
[2020-06-24] MEDS ORDERED: INSULIN (LEVEMIR) 100 UNITS/ML UNITS SQ ONE (06:13)
[2020-06-24 09:26] LABS: BASO % 0.3 % (0-2.0); HEMATOCRIT 51.3 % (35.4-49); HEMOGLOBIN 17.2 GM/dL (11.7-16.9); LYMPH % 1.6 % (8-40); MCH 32.4 pg (25.7-33.7); MCHC 33.5 g/dl (32.0-35.9); MEAN CELL VOLUME 96.9 fl (80-96); MEAN PLT VOLUME 9.6 fl (7.5-11.1); MONO % 4.2 % (3.8-10.2); NEUT % 93.9 % (42.8-82.8); PLATELET COUNT 152 K/MM3 (134-434); RBC 5.29 M/mm3 (4.00-5.60); RDW 14.3 % (11.9-15.9); WHITE BLOOD COUNT 21.5 K/mm3 (4.0-10.0)
[2020-06-24 09:46] LABS: POTASSIUM 4.4 mmol/L (3.5-5.1)
[2020-06-24 09:53] LABS: BLOOD UREA NITROGEN 45.7 mg/dL (7-18)
[2020-06-24 09:56] LABS: CREATININE 1.3 mg/dL (0.55-1.3)
[2020-06-24 09:57] LABS: CALCIUM 9.4 mg/dL (8.5-10.1)
[2020-06-24 10:37] LABS: ANISOCYTOSIS 1+; MACROCYTOSIS 1+; PLATELET ESTIMATE NORMAL
[2020-06-24] MEDS: DOCUSATE SODIUM 100 MG CAPSULE (FP) PO SCH (10:55)
[2020-06-24] MEDS: ALBUTEROL SO4 HFA INHALER IH SCH ×4 (10:55→21:28)
[2020-06-24] MEDS: ASPIRIN 81 MG CHEWABLE TABLETS PO SCH (10:55)
[2020-06-24] MEDS: DEXAMETHASONE 4 MG TABLET (FP) PO SCH (10:55)
[2020-06-24] MEDS: FUROSEMIDE 40 MG TABLET (FP) PO SCH (10:56)
[2020-06-24] MEDS: ALLOPURINOL 300 MG TABLET (FP) PO SCH (10:56)
[2020-06-24] MEDS: ENOXAPARIN NA (PORCINE) 40 MG/0.4 ML DISP.SYRIN SQ SCH (10:56)
[2020-06-24] MEDS: SODIUM CHLORIDE NASAL SPRAY 44 ML BOTTLE NS SCH (10:56)
[2020-06-24] MEDS: BUDESONIDE/FORMETEROL FUMARATE 160/4.5 mcg INHALER IH SCH ×2 (10:57→21:29)
[2020-06-24] MEDS: POLYETHYLENE GLYCOL 3350 119 GM BTL PO SCH (11:26)
[2020-06-24 13:36] LABS: HEMATOCRIT 49.7 % (35.4-49); HEMOGLOBIN 16.4 GM/dL (11.7-16.9); MCH 32.1 pg (25.7-33.7); MCHC 32.9 g/dl (32.0-35.9); MEAN CELL VOLUME 97.5 fl (80-96); MEAN PLT VOLUME 9.5 fl (7.5-11.1); PLATELET COUNT 120 K/MM3 (134-434); RDW 14.3 % (11.9-15.9)
[2020-06-24 13:55] LABS: POTASSIUM 4.3 mmol/L (3.5-5.1)
[2020-06-24 14:01] LABS: ALBUMIN 3.4 g/dl (3.4-5.0); CALCIUM 9.2 mg/dL (8.5-10.1)
[2020-06-24 14:06] LABS: CREATININE 1.3 mg/dL (0.55-1.3)
[2020-06-24 14:08] LABS: BILIRUBIN,TOTAL 0.8 mg/dL (0.2-1); TOT PROT 5.7 g/dl (6.4-8.2)
[2020-06-24] MEDS: ATORVASTATIN CA 10 MG TABLET (FP) PO SCH (21:23)
[2020-06-25] MEDS ORDERED: PT OWN MED DRAWER 7, Y5N ONE ×2 (03:37→17:05)
[2020-06-25] MEDS: ACETAMINOPHEN 325 MG TABLET (FP) PO PRN (05:01)
[2020-06-25] MEDS: glipiZIDE 5 MG TABLET (FP) PO SCH ×2 (06:16→17:09)
[2020-06-25] MEDS: INSULIN (LEVEMIR) 100 UNITS/ML UNITS SQ SCH ×2 (06:18→22:05)
[2020-06-25] MEDS: INSULIN SLIDING SCALE (NOVOLOG) 1 VIAL SQ SCH ×3 (06:23→17:18)
[2020-06-25] MEDS: ALLOPURINOL 300 MG TABLET (FP) PO SCH (10:00)
[2020-06-25] MEDS: POLYETHYLENE GLYCOL 3350 119 GM BTL PO SCH (10:00)
[2020-06-25] MEDS: ASPIRIN 81 MG CHEWABLE TABLETS PO SCH (10:00)
[2020-06-25] MEDS: FUROSEMIDE 40 MG TABLET (FP) PO SCH (10:00)
[2020-06-25] MEDS: DEXAMETHASONE 4 MG TABLET (FP) PO SCH (10:00)
[2020-06-25] MEDS: ENOXAPARIN NA (PORCINE) 40 MG/0.4 ML DISP.SYRIN SQ SCH (10:00)
[2020-06-25] MEDS: DOCUSATE SODIUM 100 MG CAPSULE (FP) PO SCH (10:00)
[2020-06-25] MEDS: SODIUM CHLORIDE NASAL SPRAY 44 ML BOTTLE NS SCH (10:01)
[2020-06-25] MEDS: BUDESONIDE/FORMETEROL FUMARATE 160/4.5 mcg INHALER IH SCH ×2 (10:01→22:11)
[2020-06-25] MEDS: ALBUTEROL SO4 HFA INHALER IH SCH ×4 (10:01→21:11)
[2020-06-25] MEDS ORDERED: INSULIN (NOVOLOG) ASPART 100 UNITS/ML 10ML VIAL ONE ×2 (11:14→17:17)
[2020-06-25] MEDS: ATORVASTATIN CA 10 MG TABLET (FP) PO SCH (22:03)
[2020-06-26] MEDS ORDERED: INSULIN (NOVOLOG) ASPART 100 UNITS/ML 10ML VIAL ONE ×2 (05:12→11:14)
[2020-06-26] MEDS: INSULIN (LEVEMIR) 100 UNITS/ML UNITS SQ SCH ×2 (06:23→21:48)
[2020-06-26] MEDS: glipiZIDE 5 MG TABLET (FP) PO SCH ×2 (06:25→16:23)
[2020-06-26] MEDS: INSULIN SLIDING SCALE (NOVOLOG) 1 VIAL SQ SCH ×3 (06:25→16:23)
[2020-06-26] MEDS: ALBUTEROL SO4 HFA INHALER IH SCH ×4 (08:54→20:48)
[2020-06-26] MEDS: DEXAMETHASONE 4 MG TABLET (FP) PO SCH (09:03)
[2020-06-26] MEDS: ALLOPURINOL 300 MG TABLET (FP) PO SCH (09:04)
[2020-06-26] MEDS: ASPIRIN 81 MG CHEWABLE TABLETS PO SCH (09:04)
[2020-06-26] MEDS: ENOXAPARIN NA (PORCINE) 40 MG/0.4 ML DISP.SYRIN SQ SCH (09:04)
[2020-06-26] MEDS: DOCUSATE SODIUM 100 MG CAPSULE (FP) PO SCH (09:04)
[2020-06-26] MEDS: FUROSEMIDE 40 MG TABLET (FP) PO SCH (09:04)
[2020-06-26] MEDS: SODIUM CHLORIDE NASAL SPRAY 44 ML BOTTLE NS SCH (09:05)
[2020-06-26] MEDS: BUDESONIDE/FORMETEROL FUMARATE 160/4.5 mcg INHALER IH SCH ×2 (09:05→21:49)
[2020-06-26] MEDS: POLYETHYLENE GLYCOL 3350 119 GM BTL PO SCH (09:35)
[2020-06-26] MEDS: ATORVASTATIN CA 10 MG TABLET (FP) PO SCH (21:48)
[2020-06-27] MEDS ORDERED: PT OWN MED DRAWER 7, Y5N ONE (04:38)
[2020-06-27] MEDS: glipiZIDE 5 MG TABLET (FP) PO SCH (06:21)
[2020-06-27] MEDS: INSULIN (LEVEMIR) 100 UNITS/ML UNITS SQ SCH (06:22)
[2020-06-27] MEDS: INSULIN SLIDING SCALE (NOVOLOG) 1 VIAL SQ SCH ×2 (06:23→11:17)
[2020-06-27 07:02] VITALS: BP 135/71; PULSE 81; TEMP 97.7
[2020-06-27] MEDS: ALBUTEROL SO4 HFA INHALER IH SCH ×2 (10:06→11:18)
[2020-06-27] MEDS: DEXAMETHASONE 4 MG TABLET (FP) PO SCH (10:07)
[2020-06-27] MEDS: DOCUSATE SODIUM 100 MG CAPSULE (FP) PO SCH (10:07)
[2020-06-27] MEDS: ASPIRIN 81 MG CHEWABLE TABLETS PO SCH (10:07)
[2020-06-27] MEDS: FUROSEMIDE 40 MG TABLET (FP) PO SCH (10:07)
[2020-06-27] MEDS: ALLOPURINOL 300 MG TABLET (FP) PO SCH (10:07)
[2020-06-27] MEDS: BUDESONIDE/FORMETEROL FUMARATE 160/4.5 mcg INHALER IH SCH (10:08)
[2020-06-27] MEDS: SODIUM CHLORIDE NASAL SPRAY 44 ML BOTTLE NS SCH (10:08)
[2020-06-27] MEDS: POLYETHYLENE GLYCOL 3350 119 GM BTL PO SCH (10:09)
== END 2020-06-27 12:51 | DRG 177 ==
LOC: JER 18:13 → JERBED 20:07 → J8W 06-09 08:55
PROVIDERS: ADMIT Internal Medicine; ATTEND Internal Medicine
PROC: XW13325 Transfusion of Convalescent Plasma (Nonautologous) into Peripheral Vein, Percutaneous Approach, New Technology Group 5 (ICD-10-PCS; principal; 2020-06-09)
PROC: XW033E5 Introduction of Remdesivir Anti-infective into Peripheral Vein, Percutaneous Approach, New Technology Group 5 (ICD-10-PCS; 2020-06-09)
DX: U07.1 COVID-19 (principal); J12.82 Pneumonia due to coronavirus disease 2019; J96.01 Acute respiratory failure with hypoxia; E11.65 Type 2 diabetes mellitus with hyperglycemia; J44.9 Chronic obstructive pulmonary disease, unspecified; I10 Essential (primary) hypertension; E11.9 Type 2 diabetes mellitus without complications; E78.00 Pure hypercholesterolemia, unspecified; E78.5 Hyperlipidemia, unspecified; F17.210 Nicotine dependence, cigarettes, uncomplicated
CPT/HCPCS: 36415; 36430; 71045-TC-FY; 80048; 80053; 81003; 82248; 82550; 82553; 82728; 82803; 82962; 83036; 83605; 83615; 83735; 83880; 84484; 85025; 85027; 85379; 85610; 85730; 86140; 86850; 86900; 86901; 87040; 87804; 93005; 93010; 94761; 97116-GP; 97161-GP; 99285-25; C9399; C9803; J0131; J1100; J3262; P9017; U0003

== ENCOUNTER 2023-02-24 19:10 | Inpatient (IN) | payer OTHER ==
[2023-02-24] MEDS ORDERED: VANCOMYCIN 1,000 MG in DEXTROSE 5%-WATER - 250 ML IVPB ONE (19:50)
[2023-02-24] MEDS ORDERED: CEFEPIME HCL/D5W 1 GM/50 ML BAG IVPB ONE (19:50)
[2023-02-24] MEDS ORDERED: CEFEPIME 1 GM/100 ML BAG IVPB ONE (20:17)
[2023-02-24 20:57] LABS: BASO % 0.3 % (0-2.0); EOS % 1.9 % (0-4.5); HEMATOCRIT 46.3 % (35.4-49); HEMOGLOBIN 15.9 GM/dL (11.7-16.9); LYMPH % 17.5 % (8-40); MCH 32.4 pg (25.7-33.7); MCHC 34.4 g/dl (32.0-35.9); MEAN CELL VOLUME 94.3 fl (80-96); MEAN PLT VOLUME 7.9 fl (7.5-11.1); MONO % 10.4 % (3.8-10.2); NEUT % 69.9 % (42.8-82.8); PLATELET COUNT 175 10^3/uL (134-434); RBC 4.91 M/mm3 (4.00-5.60); RDW 13.8 % (11.9-15.9); WHITE BLOOD COUNT 6.8 K/mm3 (4.0-10.0)
[2023-02-24 21:08] LABS: INR 0.93 (0.83-1.09); PROTHROMBIN TIME (PATIENT) 10.8 SEC (9.7-13.0)
[2023-02-24 21:11] LABS: ACTIVATED PTT 28.9 SECONDS (25.2-36.5)
[2023-02-24 21:27] LABS: POTASSIUM 3.4 mmol/L (3.5-5.1)
[2023-02-24 21:29] LABS: CALCIUM 9.3 mg/dL (8.5-10.1)
[2023-02-24 21:30] LABS: ALBUMIN 4.2 g/dl (3.4-5.0); BLOOD UREA NITROGEN 17.7 mg/dL (7-18)
[2023-02-24 21:33] LABS: CREATININE 1.5 mg/dL (0.55-1.3)
[2023-02-24 21:34] LABS: BILIRUBIN,TOTAL 0.8 mg/dL (0.2-1)
[2023-02-24 21:35] LABS: TOT PROT 6.6 g/dl (6.4-8.2)
[2023-02-24] MEDS ORDERED: SODIUM CHLORIDE 0.9% 500 ML INFUS.BAG IV ONE (22:21)
[2023-02-25 02:42] VITALS: BMI 32.5
[2023-02-25] MEDS ORDERED: CEFEPIME HCL 2 GM VIAL (RESTRICTED TO ID) IVPB SCH (08:45)
[2023-02-25 09:49] LABS: BASO % 0.4 % (0-2.0); EOS % 2.4 % (0-4.5); HEMATOCRIT 46.5 % (35.4-49); HEMOGLOBIN 15.4 GM/dL (11.7-16.9); LYMPH % 16.8 % (8-40); MCH 31.7 pg (25.7-33.7); MCHC 33.1 g/dl (32.0-35.9); MEAN CELL VOLUME 95.9 fl (80-96); MEAN PLT VOLUME 8.3 fl (7.5-11.1); MONO % 9.6 % (3.8-10.2); NEUT % 70.8 % (42.8-82.8); PLATELET COUNT 166 10^3/uL (134-434); RBC 4.85 M/mm3 (4.00-5.60); RDW 13.9 % (11.9-15.9); WHITE BLOOD COUNT 5.8 K/mm3 (4.0-10.0)
[2023-02-25] MEDS ORDERED: VANCOMYCIN PREMIX 1.5 GM 1,500 MG/300 ML BAG IVPB SCH ×3 (10:00→10:30)
[2023-02-25 10:02] LABS: POTASSIUM 3.5 mmol/L (3.5-5.1)
[2023-02-25 10:06] LABS: CALCIUM 8.6 mg/dL (8.5-10.1)
[2023-02-25 10:07] LABS: BLOOD UREA NITROGEN 17.4 mg/dL (7-18); MAGNESIUM 1.8 mg/dL (1.8-2.4)
[2023-02-25 10:10] LABS: CREATININE 1.4 mg/dL (0.55-1.3); PHOSPHOROUS 3.3 mg/dL (2.5-4.9)
[2023-02-25] MEDS: ACETAMINOPHEN 325 MG TABLET (FP) PO PRN (10:10)
[2023-02-25] MEDS ORDERED: CEFEPIME 2 GM in DEXTROSE 5%-WATER 100 ML IVPB SCH ×2 (10:45→22:00)
[2023-02-25] MEDS: ALLOPURINOL 300 MG TABLET (FP) PO SCH (10:53)
[2023-02-25] MEDS ORDERED: INSULIN (NOVOLOG) ASPART 100 UNITS/ML 10ML VIAL ONE (16:40)
[2023-02-25] MEDS: CEFAZOLIN 1 GM in DEXTROSE 5%-WATER - 50 ML IVPB SCH (17:53)
[2023-02-25] MEDS: DOXYCYCLINE HYCLATE 100 MG CAPSULE PO SCH (17:53)
[2023-02-25] MEDS: INSULIN SLIDING SCALE (NOVOLOG) 1 VIAL SQ SCH (17:53)
[2023-02-25] MEDS: ATORVASTATIN CA 10 MG TABLET (FP) PO SCH (21:12)
[2023-02-25] MEDS: INSULIN (LEVEMIR) 100 UNITS/ML UNITS SQ SCH (21:13)
[2023-02-25] MEDS: ALBUTEROL SO4 HFA INHALER IH PRN (23:06)
[2023-02-26] MEDS: CEFAZOLIN 1 GM in DEXTROSE 5%-WATER - 50 ML IVPB SCH ×3 (01:29→17:18)
[2023-02-26] MEDS ORDERED: INSULIN (NOVOLOG) ASPART 100 UNITS/ML 10ML VIAL ONE ×5 (06:00→18:19)
[2023-02-26] MEDS: INSULIN SLIDING SCALE (NOVOLOG) 1 VIAL SQ SCH ×4 (06:06→16:43)
[2023-02-26] MEDS ORDERED: INSULIN (LEVEMIR) 100 UNITS/ML UNITS SQ ONE (06:51)
[2023-02-26] MEDS: ALLOPURINOL 300 MG TABLET (FP) PO SCH (09:01)
[2023-02-26] MEDS: DOXYCYCLINE HYCLATE 100 MG CAPSULE PO SCH ×2 (09:01→17:18)
[2023-02-26] MEDS: FLUTICASONE/UMECLIDIN/VILANTER(100-62.5-25 TRELEGY ELLIPTA) INAHLER IH SCH (09:02)
[2023-02-26] MEDS: ACETAMINOPHEN 325 MG TABLET (FP) PO PRN ×2 (12:49→21:23)
[2023-02-26] MEDS: ALBUTEROL SO4 HFA INHALER IH PRN (21:20)
[2023-02-26] MEDS: ATORVASTATIN CA 10 MG TABLET (FP) PO SCH (21:21)
[2023-02-26] MEDS: INSULIN (LEVEMIR) 100 UNITS/ML UNITS SQ SCH (21:22)
[2023-02-26] MEDS ORDERED: BUDESONIDE/FORMETEROL FUMARATE 80/4.5 mcg INHALER IH SCH (22:00)
[2023-02-27] MEDS: CEFAZOLIN 1 GM in DEXTROSE 5%-WATER - 50 ML IVPB SCH ×3 (04:09→17:32)
[2023-02-27] MEDS: INSULIN SLIDING SCALE (NOVOLOG) 1 VIAL SQ SCH ×3 (06:25→16:49)
[2023-02-27] MEDS: ACETAMINOPHEN 325 MG TABLET (FP) PO PRN ×2 (07:44→19:50)
[2023-02-27 08:29] LABS: BASO % 0.6 % (0-2.0); HEMATOCRIT 43.8 % (35.4-49); HEMOGLOBIN 14.7 GM/dL (11.7-16.9); LYMPH % 22.5 % (8-40); MCH 32.1 pg (25.7-33.7); MCHC 33.6 g/dl (32.0-35.9); MEAN CELL VOLUME 95.5 fl (80-96); MEAN PLT VOLUME 8.2 fl (7.5-11.1); MONO % 8.6 % (3.8-10.2); NEUT % 65.3 % (42.8-82.8); PLATELET COUNT 150 10^3/uL (134-434); POTASSIUM 3.6 mmol/L (3.5-5.1); RBC 4.59 M/mm3 (4.00-5.60); RDW 13.7 % (11.9-15.9); WHITE BLOOD COUNT 4.8 K/mm3 (4.0-10.0)
[2023-02-27 08:30] LABS: CALCIUM 8.1 mg/dL (8.5-10.1)
[2023-02-27 08:31] LABS: BLOOD UREA NITROGEN 18.9 mg/dL (7-18)
[2023-02-27 08:34] LABS: CREATININE 1.3 mg/dL (0.55-1.3)
[2023-02-27] MEDS: DOXYCYCLINE HYCLATE 100 MG CAPSULE PO SCH ×2 (09:23→17:32)
[2023-02-27] MEDS: ALLOPURINOL 300 MG TABLET (FP) PO SCH (09:23)
[2023-02-27] MEDS: ALBUTEROL SO4 HFA INHALER IH PRN (09:23)
[2023-02-27] MEDS ORDERED: PATIENT'S OWN MEDICATION (NON-FORMULARY) (Dapagliflozin Propanediol 10 MG Tablet) PO SCH (10:00)
[2023-02-27] MEDS: FLUTICASONE/UMECLIDIN/VILANTER(100-62.5-25 TRELEGY ELLIPTA) INAHLER IH SCH (10:24)
[2023-02-27] MEDS: ATORVASTATIN CA 10 MG TABLET (FP) PO SCH (22:24)
[2023-02-27] MEDS: INSULIN (LEVEMIR) 100 UNITS/ML UNITS SQ SCH (22:26)
[2023-02-28] MEDS: CEFAZOLIN 1 GM in DEXTROSE 5%-WATER - 50 ML IVPB SCH ×2 (02:11→09:53)
[2023-02-28] MEDS: INSULIN SLIDING SCALE (NOVOLOG) 1 VIAL SQ SCH ×2 (06:17→11:15)
[2023-02-28 07:36] VITALS: RESP 20; TEMP 97.9
[2023-02-28] MEDS: ALBUTEROL SO4 HFA INHALER IH PRN (09:53)
[2023-02-28] MEDS: ALLOPURINOL 300 MG TABLET (FP) PO SCH (09:53)
[2023-02-28] MEDS: DOXYCYCLINE HYCLATE 100 MG CAPSULE PO SCH (09:53)
[2023-02-28] MEDS: FLUTICASONE/UMECLIDIN/VILANTER(100-62.5-25 TRELEGY ELLIPTA) INAHLER IH SCH (09:58)
[2023-02-28 12:19] VITALS: BP 149/78; PULSE 74
== END 2023-02-28 12:27 | disposition home or self-care (01) | DRG 603 ==
LOC: JER 19:10 → JERBED 22:22 → J7W 02-25 02:20
PROVIDERS: ADMIT Internal Medicine; ATTEND Internal Medicine
DX: L03.113 Cellulitis of right upper limb (principal); E11.9 Type 2 diabetes mellitus without complications; J44.9 Chronic obstructive pulmonary disease, unspecified; I10 Essential (primary) hypertension; E78.5 Hyperlipidemia, unspecified; M10.9 Gout, unspecified
CPT/HCPCS: 0241U-QW; 36415; 73060-TC-RT-FY; 73090-TC-RT-FY; 73130-TC-RT-FY; 80048; 80053; 82962; 83036; 83605; 83735; 84100; 85025; 85610; 85730; 86850; 86900; 86901; 87040; 87070; 87205; 93005; 93010; 99285-25

== ENCOUNTER 2023-10-29 09:00 | Emergency (ER) | payer OTHER ==
[2023-10-29 09:18] VITALS: BP 151/78; PULSE 96; RESP 18; TEMP 97.9; BMI 32.8
[2023-10-29 10:07] LABS: HEMATOCRIT 51.3 % (35.4-49); HEMOGLOBIN 16.6 G/dL (11.7-16.9); MCH 32.1 pg (25.7-33.7); MCHC 32.4 g/dl (32.0-35.9); PLATELET COUNT 129.7 10^3/uL (134-434); RBC 5.18 10^6/uL (4.00-5.60); RDW 13.7 % (11.9-15.9); WHITE BLOOD COUNT 5.5 10^3/uL (4.0-10.8)
[2023-10-29 10:12] LABS: PLATELET ESTIMATE SLT DECREASE
[2023-10-29 10:18] LABS: ALBUMIN 4.3 g/dl (3.4-5.0); ALK PHOS 75 U/L (45-117); ANION GAP 9 mmol/L (4-13); BILIRUBIN,TOTAL 0.5 mg/dl (0.2-1); CALCIUM 9.5 mg/dl (8.5-10.1); CHLORIDE 109 mmol/L (98-107); CO2 24 mmol/L (21-32); CREATININE 1.5 mg/dl (0.6-1.3); GLUCOSE,RANDOM 103 mg/dl (74-106); POTASSIUM 3.8 mmol/L (3.5-5.1); SGOT/AST 28 U/L (15-37); SGPT/ALT 32 U/L (7-52); SODIUM 142 mmol/L (136-145); TOT PROT 6.1 g/dl (6.4-8.2); URIC ACID 3.7 mg/dl (2.6-7.2)
[2023-10-29 10:44] LABS: ERYTHROCYTE SEDIMENTATION RATE 1 mm/hr (0-20)
== END 2023-10-29 11:35 | disposition home or self-care (01) ==
LOC: FER 09:00
DX: S92.354D Nondisplaced fracture of fifth metatarsal bone, right foot, subsequent encounter for fracture with routine healing (principal); X58.XXXD Exposure to other specified factors, subsequent encounter
CPT/HCPCS: 36415; 73610-TC-RT-FY; 73630-TC-RT-FY; 80053; 84550; 85027; 85651; 86140; 87040; 99284-25

== ENCOUNTER 2023-11-12 13:19 | Emergency (ER) | payer OTHER ==
[2023-11-12 13:26] VITALS: BP 148/78; PULSE 98; RESP 16; TEMP 99.1; BMI 31.8
[2023-11-12] MEDS ORDERED: DEXAMETHASONE SOD PHOSPHATE 10 MG/1 ML VIAL ONE (14:05)
[2023-11-12] MEDS ORDERED: ALBUTEROL SO4 2.5/IPRATROPIUM 0.5 INH SOL 3 ML VIAL.NEB. NEB ONE (14:05)
[2023-11-12] MEDS: ALBUTEROL SO4 2.5/IPRATROPIUM 0.5 INH SOL 3 ML VIAL.NEB. NEB ONE (14:20)
[2023-11-12] MEDS ORDERED: DEXAMETHASONE 4 MG TABLET (FP) ONE (14:26)
[2023-11-12] MEDS: DEXAMETHASONE LIQUID 0.5 MG/5 ML PO ONE (14:32)
== END 2023-11-12 15:53 | disposition home or self-care (01) ==
LOC: JER 13:19
PROC: 3E0F7GC Introduction of Other Therapeutic Substance into Respiratory Tract, Via Natural or Artificial Opening (ICD-10-PCS; principal; 2023-11-12)
DX: U07.1 COVID-19 (principal); R06.02 Shortness of breath; R05.9 Cough, unspecified; R09.81 Nasal congestion; R53.1 Weakness
CPT/HCPCS: 0241U-QW; 71045-TC-FY; 93005; 93010; 99285-25

== ENCOUNTER 2024-02-01 04:07 | Day surgery (SDC) | payer OTHER ==
[2024-01-16 15:39] VITALS: BMI 31.5
[2024-02-01 09:23] VITALS: PULSE 68
[2024-02-01] MEDS ORDERED: LIDOCAINE HCL 2% (20ML MULTI-DOSE VIAL) ONE (10:01)
[2024-02-01] MEDS ORDERED: BUPIVACAINE HCL/PF 0.5% (5MG/ML) 10 ML VIAL ONE (10:01)
[2024-02-01] MEDS ORDERED: LIDOCAINE HCL/PF 2% SDV 5ML VIAL ONE (10:29)
[2024-02-01] MEDS ORDERED: MIDAZOLAM HCL 2 MG/2 ML SINGLE DOSE VIAL ONE (10:30)
[2024-02-01] MEDS ORDERED: PROPOFOL 20 ML ONE ×2 (10:30→12:04)
[2024-02-01] MEDS ORDERED: DEXAMETHASONE SOD PHOSPHATE 4 MG/1 ML VIAL ONE (11:42)
[2024-02-01] MEDS ORDERED: ONDANSETRON 4 MG/2 ML VIAL ONE (11:42)
[2024-02-01] MEDS ORDERED: KETOROLAC TROMETHAMINE 30 MG/1 ML VIAL ONE (11:42)
[2024-02-01] MEDS ORDERED: ceFAZolin SODIUM 1 GM VIAL ONE (11:42)
[2024-02-01] MEDS: LIDOCAINE HCL 2% (50ML VIAL) NR ONE ×2 (11:44)
[2024-02-01] MEDS: ceFAZolin SODIUM 1 GM VIAL IVPB ONE ×2 (12:20)
[2024-02-01] MEDS: BUPIVACAINE HCL/PF 0.5% (5 MG/ML) 30 ML VIAL IJ ONE ×2 (12:34)
[2024-02-01 13:08] VITALS: TEMP 97.3
[2024-02-01 14:08] VITALS: BP 130/54; RESP 20
== END 2024-02-01 15:20 | disposition home or self-care (01) ==
LOC: JASU-SURG 04:07
PROVIDERS: ATTEND Student in an Organized Health Care Education/Training Program
PROC: 0QBN0ZX Excision of Right Metatarsal, Open Approach, Diagnostic (ICD-10-PCS; principal; 2024-02-01 11:00)
DX: M86.8X7 Other osteomyelitis, ankle and foot (principal)
CPT/HCPCS: 36415; 82010; 82962; 87070; 87075; 87205; 88307-TC; 88311-TC

== ENCOUNTER 2024-02-18 10:21 | Day surgery (SDC) | payer OTHER ==
[2024-02-18 11:13] VITALS: RESP 16; TEMP 98.8
[2024-02-18] MEDS: DALBAVANCIN HCL 1,500 MG in DEXTROSE 5%-WATER - 500 ML IVPB ONE (11:19)
[2024-02-18 12:26] VITALS: BP 121/72; PULSE 67
== END 2024-02-18 12:27 | disposition home or self-care (01) ==
LOC: FINFUSION 10:21 → FM/S 10:25 → FINFUSION 12:27
PROVIDERS: ATTEND Internal Medicine
DX: M86.9 Osteomyelitis, unspecified (principal)
CPT/HCPCS: 96365; J0875

== ENCOUNTER 2024-02-25 10:50 | Day surgery (SDC) | payer OTHER ==
[2024-02-25] MEDS: DALBAVANCIN HCL 1,500 MG in DEXTROSE 5%-WATER - 500 ML IVPB ONE (11:25)
[2024-02-25 12:33] VITALS: BP 140/78; PULSE 70; RESP 14; TEMP 97.7
== END 2024-02-25 12:35 | disposition home or self-care (01) ==
LOC: FINFUSION 10:50 → FM/S 10:51 → FINFUSION 12:35
PROVIDERS: ATTEND Internal Medicine
DX: M86.9 Osteomyelitis, unspecified (principal)
CPT/HCPCS: 96365; J0875